=== PATIENT | female | born 1975 | race Caucasian/White ===

== ENCOUNTER → 2020-05-07 08:02 | Outpatient (CLI) | payer MEDICARE, SELFPAY ==
--- NOTE | 2020-05-07 08:23 | MRI_ITS ---
HISTORY: R RADICULITIS COMPARISON: None TECHNIQUE: Multiplanar, multisequence MRI of the lumbar spine without IV contrast. FINDINGS: Conus ends at T12. Metallic susceptibility artifact is seen in the subcutaneous fat of the back. Perineural cysts are partially visualized and the sacrum. L1-L2: No significant disc bulging, canal or foraminal stenosis. L2-L3: No significant disc bulging, canal or foraminal stenosis. L3-L4: No significant disc bulging, canal or foraminal stenosis. Facet hypertrophy. L4-L5: No significant disc bulging, canal or foraminal stenosis. Facet hypertrophy. L5-S1: Disc desiccation with moderate disc space narrowing. Diffuse disc bulging with right paracentral disc protrusion, associated lateral recess stenosis with disc abutting the nerve root. Facet hypertrophy. Moderate right-sided foraminal stenosis. No significant canal stenosis. MRI/Spine Lumbar (Routine) IMPRESSION: Right paracentral disc protrusion at L5-S1 with lateral recess stenosis and nerve root impingement. at 1251 Reported and signed by: Ada Mills MD Electronically Signed: Ada Mills MD at 12:50 EDT Tel , Service support ,
== END ==
PROVIDERS: PCP Nurse Practitioner Family; Referring Provider Nurse Practitioner Family; Visit Provider Nurse Practitioner Family
DX: M79.651 Pain in right thigh (principal); M54.16 Radiculopathy, lumbar region
CPT/HCPCS: 72148